=== PATIENT | female | born 1985 | race American Indian/Alaskan Native ===

== ENCOUNTER 2016-06-02 10:44 | Inpatient (IN) | payer OTHER ==
[2016-06-02 11:10] VITALS: BMI 25.0
[2016-06-02] MEDS: Lactated Ringer's 1,000 ML IV SCH ×2 (11:15→12:15)
[2016-06-02 11:30] LABS: BASO % 0.4 % (0.0-2.0); EOS % 0.6 % (0.0-4.0); HEMATOCRIT 33.6 % (34.0-47.0); LYMPH # 1.1 K/uL (1.0-4.3); MEAN CELL VOLUME 79.7 fl (81.0-99.0); MEAN CORPUSCULAR HEMOGLOBIN 25.5 pg (27.0-31.0); MEAN CORPUSCULAR HGB CONC 32.1 g/dL (33.0-37.0); MEAN PLATELET VOLUME 8.5 fl (7.2-11.7); MONO # 0.7 K/uL (0.0-0.8); MONO % 8.7 % (0.0-10.0); NEUT # 6.1 K/uL (1.8-7.0); NEUT % 76.3 % (50.0-75.0); RED CELL DISTRIBUTION WIDTH 17.7 % (11.5-14.5)
[2016-06-02 11:37] VITALS: BP 112/65; PULSE 77; RESP 18; TEMP 98
--- NOTE | 2016-06-02 12:06 | OBADHP ---
Datetime: 06/02/2016 11:59 Admit Comment, IP Provider: term uneventful course in labor for admission light m econium Pelvic Type - PN: Adequate Extremities - PN: Normal Abdomen - PN: Normal Back - PN: Normal Breast - PN: Normal Lungs - PN: Normal Heart - PN: Normal Thyroid - PN: Normal Neurologic - PN: Normal HEENT - PN: Normal General - PN: Normal Presentation-Admit: Vertex FHR - Baseline A Provider: 130ml Amniotic Fluid Color, Provider: Meconium, Light Membranes, Provider: Ruptured Gestation - Est Wks by US: 39+ Vital Signs Provider: Reviewed; Within Normal Limits IP Chief Complaint: Uterine contractions NICHD Variability Prov Fetus A: Moderate 6-25bpm NICHD Accel Fetus A IP Provider: 10X10 FHR Category Provider Fetus A: Category I NICHD Decel Fetus A IP Provider: None Dilatation, Provider: 5 Effacement, Provider: 80% Station, Provider: -1 Genitourinary Exam: Normal DTRs - PN: Normal EGA AdmitDate IP: 39.2 IP Adm Impression: Term, intrauterine ; Active labor IP Admit Plan: Admit to unit; Initiate labor induction protocol
[2016-06-02] MEDS ORDERED: Fentanyl/Bupivacaine HCl 250 ML EPI ONE (13:45)
[2016-06-02] MEDS ORDERED: Lactated Ringer's 1,000 ML IV SCH ×2 (14:00→17:43)
[2016-06-02] MEDS ORDERED: Lidocaine 2% PF (10 ml) Amp ONE (14:32)
[2016-06-02] MEDS ORDERED: Oxytocin 30 units/LR 500ML 500 ML IV ONE ×2 (14:41→15:00)
--- NOTE | 2016-06-02 15:11 | OBDS ---
DELIVERY PERSONNEL Delivery Doctor: Reji Lopez MD Anesthesiologist: Vivek Abdalla MD MATERNAL INFORMATION Delivery Anesthesia: Epidural Medications in Delivery: 30 units Pitocin in 500 ml LR Maternal Complications: None Provider Comments: delivery of live baby girl 9/9 meconium fluid cord with 3 vessels pacenta m anually removed LABOR SUMMARY EDC: 06/07/2016 00:00 No. Babies in Womb: 1 Attempted: No Labor Anesthesia: Epidural LABOR INFORMATION Reason for Induction: Not Applicable Onset of Labor: 06/02/2016 08:00 Group B Beta Strep: Negative Antibiotics # of Doses: 0 Steroids Given: None Reason Steroids Not Administered: Not Applicable MEMBRANES Membranes Rupture Method: Artificial Rupture of Membranes: 06/02/2016 11:55 Amniotic Fluid Color: Heavy Meconium Amniotic Fluid Amount: Small Amniotic Fluid Odor: Normal VAGINAL DELIVERY Episiotomy: None Laceration Extension: N/A Laceration Type: None Laceration Repair Note: none Sponge Count Correct: Yes Sharps Count Correct: Yes Count Comment: correct BABY A INFORMATION Born in Route : No : N/A Forceps: N/A INFORMATION BABY A Gestational Age at Delivery: 39.2 Gestational Status: Term IDENTIFICATION/MEDS BABY A ID Band Number: [id number] CORD INFORMATION BABY A No. Cord Vessels: 3 Cord Blood Taken: Yes Infant Suction: Mouth; Nose
[2016-06-02] MEDS ORDERED: Oxycodone/Acetaminophen 5/325 mg Tab PO PRN ×4 (15:12→17:43)
[2016-06-03 07:07] LABS: BASO % 0.3 % (0.0-2.0); EOS # 0.1 K/uL (0.0-0.7); EOS % 0.8 % (0.0-4.0); HEMATOCRIT 29.3 % (34.0-47.0); LYMPH # 1.4 K/uL (1.0-4.3); LYMPH % 13.3 % (20.0-40.0); MEAN CELL VOLUME 78.7 fl (81.0-99.0); MEAN CORPUSCULAR HEMOGLOBIN 25.4 pg (27.0-31.0); MEAN CORPUSCULAR HGB CONC 32.3 g/dL (33.0-37.0); MEAN PLATELET VOLUME 8.6 fl (7.2-11.7); MONO % 9.5 % (0.0-10.0); NEUT # 7.7 K/uL (1.8-7.0); NEUT % 76.1 % (50.0-75.0); RED CELL DISTRIBUTION WIDTH 17.4 % (11.5-14.5); WHITE BLOOD COUNT 10.1 K/uL (4.8-10.8)
--- NOTE | 2016-06-03 10:38 | OBPPN ---
Datetime: 06/03/2016 10:34 PP Pain Prov: Within normal limits PP Nausea Prov: Denies PP Flatus Prov: Yes PP BM Prov: No PP Breasts Prov: Normal PP Heart Prov: Normal PP Lungs Prov: Normal PP Abdomen/Uterus Prov: Normal PP Lochia Prov: Normal PP Vulva/Perineum Prov: Normal PP CVA Tenderness Prov: Normal PP Extremities Prov: Normal PP Progress Prov: Normal PP Impression Prov: Normal progression PP Plan Prov: Continue present management PP Progress Note Prov: stable ppd1 continue present care no complaints today IP PP Procedures: None
--- NOTE | 2016-06-04 11:21 | OBPPN ---
Datetime: 06/04/2016 11:18 PP Pain Prov: Within normal limits PP Nausea Prov: Denies PP Flatus Prov: Yes PP Breasts Prov: Normal PP Heart Prov: Normal PP Lungs Prov: Normal PP Abdomen/Uterus Prov: Normal PP Lochia Prov: Normal PP Vulva/Perineum Prov: Normal PP CVA Tenderness Prov: Normal PP Extremities Prov: Normal PP Progress Prov: Normal PP Impression Prov: Normal progression PP Plan Prov: Continue present management PP Progress Note Prov: stable ppd2 no complaints today dc home today IP PP Procedures: None
--- NOTE | 2016-06-04 11:25 | OBDCSUM ---
Datetime: 06/04/2016 11:21 Discharged to, Provider: Home Follow up at, Provider: Disch Instr Activity: May be up to bathroom; May be up for meals; May Shower Disch Instr Diet: Regular Discharge Instructions, Provider: Routine instructions given Discharge Diagnosis, Provider: Term Delivered Discharge Time: 06/04/2016 11:21 Follow up in weeks, Provider: 5-6 weeks Disch Referrals: None Disch Activity Restrictions: No exercising; No lifting; No driving; Minimize walking; Minimize stair -climbing; No sexual activity; Nothing in vagina - [place], tampons, douche Discharge Comment, Provider: dc home today rto 5-6 weeks call office if any problems Contraception after Delivery: Undecided
== END 2016-06-04 13:40 | disposition home or self-care (01) | DRG 373 ==
LOC: H.EROB2 10:44 → H.L&D 11:10 → H.OB/GYN 17:15
PROVIDERS: ADMIT Specialist; ATTEND Specialist
PROC: 10E0XZZ Delivery of Products of Conception, External Approach (ICD-10-PCS; principal; 2016-06-02)
PROC: 4A1HXCZ Monitoring of Products of Conception, Cardiac Rate, External Approach (ICD-10-PCS; 2016-06-02)
DX: O77.0 Labor and delivery complicated by meconium in amniotic fluid (principal); O69.81X0 Labor and delivery complicated by cord around neck, without compression, not applicable or unspecified; Z37.0 Single live birth; Z3A.39 39 weeks gestation of pregnancy

== ENCOUNTER 2016-09-09 07:25 | Day surgery (SDC) | payer OTHER ==
[2016-09-09 07:56] VITALS: BMI 23.9
[2016-09-09] MEDS ORDERED: Lactated Ringer's 1,000 ML IV ONE (07:58)
[2016-09-09] MEDS ORDERED: Propofol 10 mg/ml Inj (20 ML) ONE (08:53)
[2016-09-09] MEDS ORDERED: Midazolam 2 MG/2 ML VIAL ONE (08:54)
[2016-09-09] MEDS ORDERED: Neostigmine Methylsulfate 3mg/3ml Syringe IV ONE (08:54)
[2016-09-09] MEDS ORDERED: Rocuronium 10 mg/ml (5 ml) ONE (08:54)
[2016-09-09] MEDS ORDERED: Succinylcholine 200 mg/10 ml Inj IV ONE (08:55)
[2016-09-09] MEDS ORDERED: Bupivacaine 0.5% Inj(30mL) ONE (10:03)
[2016-09-09] MEDS ORDERED: Bupivacaine 0.5% 50 ML IJ ONE ×2 (10:10)
[2016-09-09] MEDS ORDERED: HYDROmorphone 0.5 mg/0.5 ml ISec IVP PRN (10:36)
[2016-09-09] MEDS ORDERED: Oxycodone/Acetaminophen 5/325 mg Tab PO PRN (10:40)
[2016-09-09 11:14] VITALS: RESP 20
[2016-09-09 13:03] VITALS: O2SAT 99
[2016-09-09 14:03] VITALS: TEMP 98.9
[2016-09-09 15:10] VITALS: BP 112/64; PULSE 64
--- NOTE | 2016-09-27 08:48 | OP ---
PROCEDURE DATE: 09/09/2016 PREOPERATIVE DIAGNOSIS: Multiparity. POSTOPERATIVE DIAGNOSIS: Multiparity. PROCEDURE: Bilateral tubal cautery. SURGEON: Jakub Lopez MD TYPE OF ANESTHESIA: General. ANESTHESIA ADMINISTERED BY: Dr. Edmondson. DESCRIPTION OF PROCEDURE: With the patient in the dorsal lithotomy position, the patient was prepped and draped in the usual sterile manner. Straight catheter was used to enter the bladder after which a weighted speculum was placed in the posterior vagina. Cervix was grasped anteriorly with single tooth tenaculum and dilated. After this, the uterine manipulator was put into place. We then moved to the abdomen. The abdomen was tented and Veress needle was introduced inflating the abdomen to about 4 L of CO2. Small incision was made below the umbilicus with 1 cm and #10 trocar introduced. The sleeve was left in place. Following this, the laparoscope with the camera attached was then introduced into the abdominopelvic cavity, and the tubes and ovaries were found to be normal. The uterus was found to be normal. After this, #5 trocar was introduced in the midline about 2-3 cm above the pubic bone. The uterus was moved around to see that everything is normal. After this was done, the tubes were ligated using cautery extensively and maintaining hemostasis. Following this, the instruments were removed from the abdominopelvic cavity and the abdomen was deflated as much as possible. The instruments were also removed from the vagina. The incisions were closed with 2-0 Vicryl and Dermabond. The patient tolerated the procedure well and was in satisfactory condition on her way to recovery room. Jakub Lopez MD
== END 2016-09-09 15:34 | disposition home or self-care (01) ==
LOC: H.OPSURG 07:25
PROVIDERS: ATTEND Specialist
DX: Z64.1 Problems related to multiparity (principal)